=== PATIENT | male | born 1960 | race Caucasian/White ===

== ENCOUNTER 2017-02-05 20:51 | Inpatient (IN) | payer OTHER ==
[~2017-02-05] VITALS: Ht 167.6 cm; Wt 92.5 kg
[~2017-02-05 20:51] MED LIST: ASPI-781 PO; ATOR20TA38 PO; CLOP75TA27 PO; DOCU-144 PO; LISI-523 PO; METO-448 PO; NIT4 SL; VALS80TA2 PO; VIGA LEFT EYE
[2017-02-05] MEDS ORDERED: KETOROLAC 15 MG INJ IV STA (22:40)
[2017-02-05] MEDS ORDERED: CLOPIDOGREL 75 MG TAB PO ONE (23:00)
[2017-02-05] MEDS ORDERED: ASPIRIN 81 MG TAB PO ONE (23:00)
--- NOTE | 2017-02-05 23:02 | ERD ---
ER Documentation Chief Complaint Chief Complaint pressure like chest pain x 3 days worst this 4pm today HPI 56-year-old man with a strong history of CAD and previous [place] with PCI and stenting to left circumflex presents with chest pain intermittent 3 days. He denies cough, no shortness of breath, no fevers or chills, no vomiting or diarrhea. Patient denies headache or blurry vision. ROS All systems reviewed and are negative except as per history of present illness. Medications Home Meds Active Scripts Lisinopril* (Zestril*) 5 Mg Tablet, 5 MG PO DAILY for 30 Days, TAB Prov:CALEB MCLEOD 09/02/14 Nitroglycerin* (Nitrostat*) 25 Tab Subl, 0.4 MG SL .Q5M UP TO 3 DOSES Y for CHEST PAIN, #30 take every 5 minutes as needed for chest pain. Up to 3 doses max Prov:CALEB MCLEOD 09/02/14 Metoprolol Tartrate* (Lopressor*) 25 Mg Tab, 25 MG PO BID for 30 Days, TAB Prov:CALEB MCLEOD 09/02/14 Docusate Sodium* (Colace*) 100 Mg Cap, 100 MG PO BID for 30 Days Prov:CALEB MCLEOD 09/02/14 Clopidogrel Bisulfate (Clopidogrel) 75 Mg Tab, 75 MG PO DAILY for 30 Days Prov:CALEB MCLEOD 09/02/14 Atorvastatin Calcium* (Atorvastatin Calcium*) 20 Mg Tab, 80 MG PO DAILY@21 for 30 Days Prov:CALEB MCLEOD 09/02/14 Reported Medications Aspirin* (Aspirin* EC) 81 Mg Tablet.dr, 81 MG PO BID, TAB 02/06/17 Discontinued Scripts Moxifloxacin Hcl* (Vigamox*) 0.5% - 3 Ml Opht, 1 DROP LEFT EYE TID for 7 Days, EA Prov:JONI GARDNER NP 03/07/16 Valsartan* (Diovan*) 80 Mg Tab, 40 MG PO DAILY for 30 Days Prov:CALEB MCLEOD 09/02/14 Aspirin* (Ecotrin*) 325 Mg Tabec, 325 MG PO DAILY for 30 Days Prov:CALEB MCLEOD 09/02/14 Allergies Allergies: Coded Allergies: No Known Allergy (Unverified , 08/31/14) PMhx/Soc Hypertension, diabetes mellitus, CAD status post ST elevation [place] and left circumflex coronary artery stenting History of Surgery: No Anesthesia Reaction: No Hx Neurological Disorder: No Hx Respiratory Disorders: No Hx Cardiac Disorders: Yes (Percutaneous transluminal coronary angioplasty ) Hx Psychiatric Problems: No Hx Miscellaneous Medical Probl: No Hx Alcohol Use: No (QUIT 11 YRS AGO) Hx Substance Use: No Hx Tobacco Use: No (QUIT 11 YEARS AGO) FmHx Family History: No diabetes Physical Exam Vitals Vital Signs Date Time Temp Pulse Resp B/P Pulse Ox O2 Delivery O2 Flow Rate FiO2 02/05/17 23:15 63 18 142/98 99 Room Air 02/05/17 23:00 64 20 142/101 99 Room Air 02/05/17 22:50 65 21 141/101 99 Room Air 02/05/17 22:32 64 22 99 Room Air 02/05/17 22:00 73 17 132/89 100 Room Air 02/05/17 20:55 97.8 74 20 153/94 97 Physical Exam GENERAL: Well-developed, well-nourished, well-hydrated, in no apparent distress , looks nontoxic in appearance HEENT: Moist mucous membranes, pink conjunctiva, no cervical spine tenderness or step-off deformities, no goiter, no jaundice or icterus, extraocular movements intact without pain. No submandibular induration, and no pharyngeal erythema NEURO: Alert and oriented 3, cranial nerves II through XII intact bilaterally, pupils equal round reactive to light, no focal deficits or facial asymmetry, sensation intact distally Strength 5/5 in upper and lower extremities bilaterally CARDIAC: Regular rate and rhythm, no murmurs rubs or gallops LUNGS: Clear bilaterally no wheezing crackles or stridor ABDOMEN: Soft nontender, no guarding, no rigidity, no rebound, no psoas sign no obturator sign. Normoactive bowel sounds SKIN: Warm and dry to touch, no abrasions, contusions, or hematomas, no lacerations, no ecchymosis, no target lesions, and without ulcers EXTREMITIES: No clubbing cyanosis or edema, calves are bilaterally symmetrical, no Homans sign, no popliteal cord sign. Distal pulses equal and bilateral PSYCH: Normal affect without agitation or irritability Result Diagram: 02/05/17220702/05/172207 Results 24 hrs Laboratory Tests Test 02/05/17 22:08 White Blood Count 7.410^3/ul Red Blood Count 5.0210^6/ul Hemoglobin 15.3g/dl Hematocrit 44.4% Mean Corpuscular Volume 88.4fl Mean Corpuscular Hemoglobin 30.5pg Mean Corpuscular Hemoglobin Concent 34.5g/dl Red Cell Distribution Width 12.4% Platelet Count 16119^3/UL Mean Platelet Volume 11.6fl Neutrophils % 62.0% Lymphocytes % 26.1% Monocytes % 10.2% Eosinophils % 0.9% Basophils % 0.4% Nucleated Red Blood Cells % 0.0/100WBC Neutrophils # 4.610^3/ul Lymphocytes # 1.910^3/ul Monocytes # 0.810^3/ul Eosinophils # 0.110^3/ul Basophils # 0.010^3/ul Nucleated Red Blood Cells # 0.010^3/ul Sodium Level 143mmol/L Potassium Level 3.8mmol/L Chloride Level 106mmol/L Carbon Dioxide Level 26mmol/L Anion Gap 15 Blood Urea Nitrogen 10mg/dl Creatinine 0.77mg/dl Glucose Level 186mg/dl Calcium Level 9.2mg/dl Total Bilirubin 0.2mg/dl Direct Bilirubin 0.00mg/dl Indirect Bilirubin 0.2mg/dl Aspartate Amino Transf (AST/SGOT) 55IU/L Alanine Aminotransferase (ALT/SGPT) 80IU/L Alkaline Phosphatase 132IU/L Troponin I < 0.012ng/ml Total Protein 7.8g/dl Albumin 3.9g/dl Globulin 3.90g/dl Albumin/Globulin Ratio 1.00 Lipase 182U/L Current Medications Medications (Trade) Dose Ordered Sig/Dewey Route PRN Reason Start Time Stop Time Status Last Admin Dose Admin Ketorolac Tromethamine (Toradol) 15 mg ONCE STAT IV 02/05/17 22:40 02/05/17 22:41 DC 02/05/17 22:47 Aspirin (Aspirin) 324 mg ONCE ONCE PO 02/05/17 23:00 02/05/17 23:10 DC 02/05/17 23:18 Clopidogrel Bisulfate (plaVIX) 300 mg ONCE ONCE PO 02/05/17 23:00 02/05/17 23:10 DC 02/05/17 23:18 Clopidogrel Bisulfate (plaVIX) 75 mg [facility] ONCE .ROUTE 02/05/17 23:11 02/05/17 23:12 DC Procedures/MDM IV line was established patient was placed on teletypesetter monitor rhythm strip revealed a sinus rhythm at about 80 bpm with upright P and T waves. Patient was afebrile EKG performed, read by me: 76 bpm, normal sinus rhythm, normal axis, no acute ST segment changes, narrow QRS complex, with good R-wave progression in precordial leads. One AP view of the chest performed, read by me reveals no acute infiltrates, normal mediastinum, sharp costophrenic and cardiac borders, no air under the diaphragm. Otherwise unremarkable chest x-ray. I administered Toradol 15 mg IV 1, aspirin 324 mg p.o. and clopidogrel 300 mg p.o. for cardioprotective measures. CBC and electrolytes are normal, liver function tests are normal, troponin was negative. Patient will be admitted to telemetry setting for continued medical management and cardiology consultation. Departure Diagnosis: Primary Impression: Chest pain Chest pain type: unspecified Qualified Code: R07.9 - Chest pain, unspecified type Additional Impression: Hypertension Hypertension type: essential hypertension Qualified Code: I10 - Essential hypertension Condition: BRUNO Clifford MD Feb 05, 2017 23:02
[2017-02-05] MEDS ORDERED: CLOPIDOGREL 75 MG TAB ONE (23:11)
[2017-02-05 23:18] LABS: BASOPHILS % 0.4 % (0.0-2.0); EOSINOPHILS # 0.1 10^3/ul (0.0-0.5); EOSINOPHILS % 0.9 % (0.0-7.0); HEMATOCRIT 44.4 % (42.0-52.0); HEMOGLOBIN 15.3 g/dl (14.0-18.0); LYMPHOCYTES # 1.9 10^3/ul (0.8-2.9); LYMPHOCYTES % 26.1 % (15.0-51.0); MEAN CORPUSCULAR HEMOGLOBIN 30.5 pg (29.0-33.0); MEAN CORPUSCULAR HGB CONC 34.5 g/dl (32.0-37.0); MEAN CORPUSCULAR VOLUME 88.4 fl (82.0-101.0); MEAN PLATELET VOLUME 11.6 fl (7.4-10.4); MONOCYTE # 0.8 10^3/ul (0.3-0.9); MONOCYTES % 10.2 % (0.0-11.0); NEUTROPHIL # 4.6 10^3/ul (1.6-7.5); PLATELET COUNT 171 10^3/UL (140-415); RED BLOOD COUNT 5.02 10^6/ul (4.70-6.10); RED CELL DISTRIBUTION WIDTH 12.4 % (11.5-14.5); WHITE BLOOD COUNT 7.4 10^3/ul (4.8-10.8)
[2017-02-05 23:25] LABS: ALANINE AMINOTRANSFERASE 80 IU/L (13-69); ALBUMIN 3.9 g/dl (3.3-4.9); ALKALINE PHOSPHATASE 132 IU/L (42-121); ANION GAP 15 (8-16); ASPARTATE AMINO TRANSFERASE 55 IU/L (15-46); BILIRUBIN,INDIRECT 0.2 mg/dl (0-1.1); BILIRUBIN,TOTAL 0.2 mg/dl (0.2-1.3); BLOOD UREA NITROGEN 10 mg/dl (7-20); CALCIUM 9.2 mg/dl (8.4-10.2); CARBON DIOXIDE 26 mmol/L (21-31); CHLORIDE 106 mmol/L (97-110); CREATININE 0.77 mg/dl (0.61-1.24); GLUCOSE 186 mg/dl (70-220); POTASSIUM 3.8 mmol/L (3.5-5.1); SODIUM 143 mmol/L (135-144); TOTAL PROTEIN 7.8 g/dl (6.1-8.1)
--- NOTE | 2017-02-05 23:28 | RADRPT ---
PROCEDURE: Chest. CLINICAL INDICATION: Chest pain. TECHNIQUE: Single frontal view of the chest was obtained. COMPARISON: 08/31/2014. FINDINGS: The cardiac silhouette is enlarged. The aortic arch is mildly calcified. There is no focal consoli dation, vascular congestion or pleural effusion. There is no pneumothorax. IMPRESSION: Mild cardiomegaly and aortic atherosclerosis. .Alex Ferrari MD, Date Time Electronically viewed and signed by .Alex Ferrari MD, MD on 02/05/2017 23:28 .T/
[2017-02-05 23:39] LABS: TROPONIN-I < 0.012 ng/ml (0.00-0.12)
[2017-02-06] VITALS (11 sets, daily range): BP systolic 104–142; BP diastolic 57–93; PULSE 62–71; RESP 19–20; TEMP 97.9; Ht 167.6 cm; Wt 92.5 kg
[2017-02-06] MEDS ORDERED: ALBUTEROL/IPRATROPIUM (NEB) 3 ML AMP HHN PRN
[2017-02-06] MEDS ORDERED: ACETAMINOPHEN 325 MG TAB PO PRN
[2017-02-06] MEDS ORDERED: NACL 0.9% 3 ML SYG IV SCH
[2017-02-06] MEDS ORDERED: ONDANSETRON 4 MG INJ IV PRN
[2017-02-06] MEDS ORDERED: morphine 2 MG INJ IV PRN
[2017-02-06] MEDS ORDERED: ASPI-664 PO (01:07)
[2017-02-06 01:08] LABS: CREATINE KINASE 88 IU/L (23-200)
[2017-02-06 01:25] LABS: CK-MB 1.01 ng/ml (0.0-2.4); TROPONIN-I < 0.012 ng/ml (0.00-0.12)
--- NOTE | 2017-02-06 06:14 | HP ---
Date/Time of Note Date/Time of Note DATE: 02/06/17 TIME: 06:10 Assessment/Plan VTE Prophylaxis VTE Prophylaxis Intervention: heparin Lines/Catheters IV Catheter Type (from Nrs): Saline Lock Assessment/Plan Assessment/Plan ASSESSMENT 56-year-old male with a history of hypertension, prediabetes, CAD with stent of the left circumflex in 2014 here with chest pain. Need to rule out ACS. PLAN -Telemetry monitoring -Supplemental oxygen, continue outpatient medication including dual antiplatelet , beta-rohini, statin, ACEI. As needed nitro morphine -2D echo and cardiology consult -Check A1c and fasting lipid in a.m. HPI/ROS Admit Date/Time Admit Date/Time Feb 05, 2017 at 23:44 Hx of Present Illness This is a 56-year-old male with a history of hypertension, prediabetes, CAD status post PCI with stents of the left circumflex in 2014 who presented to ER complaining of chest pain x 3 days. It is left sided with no radiation. Denied shortness of breath, nausea/vomiting, diaphoresis. Currently he is feeling well and is CP free. He said he has not been taking any medications for over 7 months. Said he did not know he has to. Initial EKG with no ST-T wave abnormalities, first troponin negative, chest x-ray was mild cardiomegaly and aortic atherosclerosis. PMH/Family/Social Social History Smoking Status: Former smoker Exam/Review of Systems Vital Signs Vitals Vital Signs Date Time Temp Pulse Resp B/P Pulse Ox O2 Delivery O2 Flow Rate FiO2 02/06/17 04:25 68 02/06/17 04:19 98.5 19 104/68 97 02/06/17 00:13 Room Air Intake and Output 02/05/17 02/05/17 02/06/17 14:59 22:59 06:59 Intake Total 400 ml Balance 400 ml Exam Constitutional: alert, oriented, well developed Head: atraumatic, normocephalic Eyes: EOMI, PERRL Respiratory: clear to auscultation, normal air movement Cardiovascular: nl pulses, regular rate and rhythm Gastrointestinal: non-tender, soft Extremities: normal pulses Labs Result Diagram: 02/05/17220702/05/172207 Medications Medications Current Medications Ondansetron HCl (Zofran Inj) 4 mg Q6H PRN IV NAUSEA AND/OR VOMITING; Start at 00:00 Aspirin (Aspirin) 81 mg DAILY PO ; Start 02/06/17 at 09:00 Acetaminophen (Tylenol Tab) 650 mg Q6H PRN PO PAIN LEVEL 1-3 OR FEVER; Start 02/06/17 at 00:00 Morphine Sulfate (morphine) 2 mg Q4H PRN IV PAIN LEVEL 7-10; Start 02/06/17 at 00:00 Famotidine (Pepcid) 20 mg Q12 PO ; Start 02/06/17 at 09:00 Enoxaparin Sodium (Lovenox) 40 mg DAILY SC ; Start 02/06/17 at 09:00 Atorvastatin Calcium (Lipitor) 80 mg DAILY@21 PO ; Start 02/06/17 at 21:00 Clopidogrel Bisulfate (plaVIX) 75 mg DAILY PO ; Start 02/06/17 at 09:00 Docusate Sodium (Colace) 100 mg BID PO ; Start 02/06/17 at 09:00 Lisinopril (Zestril) 5 mg DAILY PO ; Start 02/06/17 at 09:00 Metoprolol Tartrate (Lopressor) 25 mg BID PO ; Start 02/06/17 at 09:00 FERNANDA FERNANDEZ MD Feb 06, 2017 06:14
[2017-02-06 07:22] LABS: BASOPHILS % 0.5 % (0.0-2.0); EOSINOPHILS # 0.1 10^3/ul (0.0-0.5); EOSINOPHILS % 1.6 % (0.0-7.0); HEMATOCRIT 41.9 % (42.0-52.0); HEMOGLOBIN 14.6 g/dl (14.0-18.0); LYMPHOCYTES # 1.2 10^3/ul (0.8-2.9); LYMPHOCYTES % 18.5 % (15.0-51.0); MEAN CORPUSCULAR HEMOGLOBIN 30.7 pg (29.0-33.0); MEAN CORPUSCULAR HGB CONC 34.8 g/dl (32.0-37.0); MEAN PLATELET VOLUME 11.4 fl (7.4-10.4); MONOCYTE # 0.7 10^3/ul (0.3-0.9); MONOCYTES % 11.5 % (0.0-11.0); NEUTROPHIL # 4.3 10^3/ul (1.6-7.5); NEUTROPHILS % 67.4 % (39.0-77.0); PLATELET COUNT 145 10^3/UL (140-415); RED BLOOD COUNT 4.76 10^6/ul (4.70-6.10); RED CELL DISTRIBUTION WIDTH 12.2 % (11.5-14.5); WHITE BLOOD COUNT 6.4 10^3/ul (4.8-10.8)
[2017-02-06 07:38] LABS: ALBUMIN 3.4 g/dl (3.3-4.9); ALBUMIN/GLOBULIN RATIO 0.91; BILIRUBIN,INDIRECT 0.4 mg/dl (0-1.1); BILIRUBIN,TOTAL 0.4 mg/dl (0.2-1.3); CALCIUM 9.1 mg/dl (8.4-10.2); CHOL/HDL RATIO 4.2 RATIO; CREATINE KINASE 81 IU/L (23-200); CREATININE 0.95 mg/dl (0.61-1.24); MAGNESIUM 1.9 mg/dl (1.7-2.5); POTASSIUM 3.6 mmol/L (3.5-5.1); TOTAL PROTEIN 7.1 g/dl (6.1-8.1)
[2017-02-06 07:52] LABS: CK-MB 0.95 ng/ml (0.0-2.4); TROPONIN-I < 0.012 ng/ml (0.00-0.12)
[2017-02-06 08:08] LABS: THYROID STIMULATING HORMONE 2.97 MIU/L (0.465-4.680)
[2017-02-06] MEDS ORDERED: LISINOPRIL 5 MG TAB PO SCH (09:00)
[2017-02-06] MEDS ORDERED: ASPIRIN 81 MG TAB PO SCH (09:00)
[2017-02-06] MEDS ORDERED: DOCUSATE SODIUM 100 MG CAP PO SCH (09:00)
[2017-02-06] MEDS ORDERED: ENOXAPARIN 40 MG/0.4 ML SYG SC SCH (09:00)
[2017-02-06] MEDS ORDERED: CLOPIDOGREL 75 MG TAB PO SCH (09:00)
[2017-02-06] MEDS ORDERED: METOPROLOL 25 MG TAB PO SCH (09:00)
[2017-02-06] MEDS ORDERED: FAMOTIDINE 20 MG TAB PO SCH (09:00)
[2017-02-06] MEDS ORDERED: ATOR10TA65 PO (10:36)
[2017-02-06] MEDS ORDERED: ASPI81TA3 PO (10:36)
[2017-02-06] MEDS ORDERED: METO-448 PO (10:36)
--- NOTE | 2017-02-06 15:10 | RADRPT ---
Echocardiogram Report Patient Name: RASHEL RILEY Gender: Male Date: 1960 Study Date: 06-Feb-2017 Transmission Rebuilder: Thanh Nair [facility] Location: 5538-A Ref. Physician: FERNANDA FERNANDEZ Quality: Adequate Procedures: Transthoracic echocardiogram with complete 2D, M-Mode, and doppler examination. Indications: Chest Pain. 2D/M Mode Doppler Measurement Value Normal Ranges Measurement Value Normal Ranges LVIDd 2D 5.0 3.5 - 5.6 cm AV Peak Reza 1.1 m/sec LVIDs 2D 3.5 2.1 - 4.1 cm AV Peak PG 4.8 mmHg LVPWd 2D 1.1 0.6 - 1.1 cm LVOT Peak Reza 0.8 m/sec IVSd 2D 1.1 0.6 - 1.1 cm LVOT Peak PG 2.7 mmHg AoR Diam 2D 3.3 2.0 - 3.7 cm MV E Peak Reza 0.7 m/sec EDV 2D 117.1 cm3 MV A Peak Reza 0.5 m/sec ESV 2D 41.5 cm3 MV E/A 1.4 LA Dimen 2D 3.9 2.3 - 4.0 cm MV Decel Time 111 msec MV Decel [place] 7 MV E/A 1.4 TR Peak Reza 2.3 m/sec TR Peak PG 20.3 mmHg RVSP 30.0 mmHg Findings Left Ventricle: Normal left ventricular systolic function. Normal left ventricular cavity size. Left ventricular wall thickness upper limits of normal. Ejection fraction is visually estimated at 55 %. Tissue Doppler/Mitral Doppler indices are consistent with pseudonormalization with mildly elevated left atrial pressure (Stage II diastolic dysfunction). Right Ventricle: Normal right ventricular size. Normal right ventricular systolic function. Left Atrium: The left atrium is normal in size. Right Atrium: The right atrium is normal in size. Mitral Valve: Normal appearance and function of the mitral valve with trace physiologic regurgitation. Aortic Valve: Normal appearance of the aortic valve. No significant aortic stenosis or insufficiency. Tricuspid Valve: Normal appearance of the tricuspid valve. Estimated peak PA systolic pressure 30 mmHg. There is mild tricuspid regurgitation. Pulmonic Valve: Pulmonic valve not well visualized. There is trace pulmonic regurgitation. Pericardium: Normal pericardium with no significant pericardial effusion. Aorta: Normal aortic root. IVC: Normal size and normal respiratory collapse consistent with normal right atrial pressure. Conclusions 1.Normal left ventricular systolic function. Normal left ventricular cavity size. Left ventricular wall thickness upper limits of normal. Ejection fraction is visually estimated at 55 %. Tissue Doppler/Mitral Doppler indices are consistent with pseudonormalization with mildly elevated left atrial pressure (Stage II diastolic dysfunction). 2.Normal appearance and function of the mitral valve with trace physiologic regurgitation. 3.Normal appearance of the aortic valve. No significant aortic stenosis or insufficiency. 4.Normal appearance of the tricuspid valve. Estimated peak PA systolic pressure 30 mmHg. There is mild tricuspid regurgitation. Electronically Signed By: Travis Rogers 06-Feb-2017 15:09:40 -0800 Patient Name: RASHEL RILEY Study Date: 06-Feb-2017 [id number]
--- NOTE | 2017-02-06 16:01 | DS ---
Date/Time of Note Date/Time of Note DATE: 02/06/17 TIME: 15:58 Discharge Summary Admission/Discharge Info Admit Date/Time Feb 05, 2017 at 23:44 Discharge Date/Time 02/06/17 Discharge Diagnosis * Chest pain * Hypertensive Heart disease Patient Condition: Stable Hospital Course This is a 56-year-old male who was admitted with recurrent chest pain over the last 5 days after he has had a history of a cardiac heart attack about a year and 1/2-2 years ago. The patient states that he has taken no medications since his discharge because he had no primary care doctor to refill his meds, and has has not had any medication for 9 months to a year. He was admitted for a cardiac workup and has ruled out with 3 troponins, he also had a relatively unremarkable 2D echocardiogram. He was also seen in consult by cardiology, and has been cleared for outpatient discharge and follow-up. He was given resources to help him pick a primary care doctor and was encouraged to ensure that he stay compliant with medications. The patient verbalized understanding and is stable for discharge at this time. Home Meds Active Scripts Atorvastatin Calcium (Atorvastatin Calcium) 10 Mg Tablet, 10 MG PO QHS, #30 TAB 3 Refills Prov:SUZE MUHAMMADIAIN Marie. 02/06/17 Aspirin (Aspirin) 81 Mg Chew, 81 MG PO DAILY for 30 Days, TAB 3 Refills Prov:JBJOSIAS. 02/06/17 Metoprolol Tartrate* (Lopressor*) 25 Mg Tab, 25 MG PO BID for 30 Days, TAB 3 Refills Prov:JOSIAS MUHAMMAD 02/06/17 Lisinopril* (Zestril*) 5 Mg Tablet, 5 MG PO DAILY for 30 Days, TAB Prov:CALEB MCLEOD 09/02/14 Nitroglycerin* (Nitrostat*) 25 Tab Subl, 0.4 MG SL .Q5M UP TO 3 DOSES Y for CHEST PAIN, #30 take every 5 minutes as needed for chest pain. Up to 3 doses max Prov:CALEB MCLEOD 09/02/14 Docusate Sodium* (Colace*) 100 Mg Cap, 100 MG PO BID for 30 Days Prov:CALEB MCLEOD 09/02/14 Clopidogrel Bisulfate (Clopidogrel) 75 Mg Tab, 75 MG PO DAILY for 30 Days Prov:CALEB MCLEOD 09/02/14 Atorvastatin Calcium* (Atorvastatin Calcium*) 20 Mg Tab, 80 MG PO DAILY@21 for 30 Days Prov:CALEB MCLEOD 09/02/14 Reported Medications Aspirin* (Aspirin* EC) 81 Mg Tablet.dr 81 MG PO BID, TAB 02/06/17 Discontinued Scripts Moxifloxacin Hcl* (Vigamox*) 0.5% - 3 Ml Opht, 1 DROP LEFT EYE TID for 7 Days, EA Prov:JONI GARDNER NP 03/07/16 Valsartan* (Diovan*) 80 Mg Tab, 40 MG PO DAILY for 30 Days Prov:CALEB MCLEOD 09/02/14 Aspirin* (Ecotrin*) 325 Mg Tabec, 325 MG PO DAILY for 30 Days Prov:CALEB MCLEOD 09/02/14 Follow-up Plan Followup with your primary doctor within the next 1-2 weeks. You have been given resources that may help you pick a new primary physician You may call Dr Cem Escalante's office. he's accepting new patients Name, Degree: Cem Escalante MD Specialty: Internal Medicine Comments: Office Address: [address] [place] [address] Office Office You may also call your insurance company to assign one to you. Review your medication list with your nurse before leaving and if you need new prescriptions please let your nurse know. I may have made changes to your home medications or given you new prescriptions, please let your primary doctor know as well. Stay compliant with your medications and report any side effects to your PCP or pharmacist. Return to the ER if you have any concerns and cannot reach your doctors or call your insurance company, they usually have a nurse that can help you. Primary Care Provider Care Physician No Primary Time spent on discharge: > 30 minutes Pending Labs Laboratory Tests Test 02/05/17 22:08 02/06/17 00:35 02/06/17 06:22 White Blood Count 7.410^3/ul (4.8-10.8) 6.410^3/ul (4.8-10.8) Red Blood Count 5.0210^6/ul (4.70-6.10) 4.7610^6/ul (4.70-6.10) Hemoglobin 15.3g/dl (14.0-18.0) 14.6g/dl (14.0-18.0) Hematocrit 44.4% (42.0-52.0) 41.9% (42.0-52.0) Mean Corpuscular Volume 88.4fl (82.0-101.0) 88.0fl (82.0-101.0) Mean Corpuscular Hemoglobin 30.5pg (29.0-33.0) 30.7pg (29.0-33.0) Mean Corpuscular Hemoglobin Concent 34.5g/dl (32.0-37.0) 34.8g/dl (32.0-37.0) Red Cell Distribution Width 12.4% (11.5-14.5) 12.2% (11.5-14.5) Platelet Count 08235^3/UL (140-415) 25272^3/UL (140-415) Mean Platelet Volume 11.6fl (7.4-10.4) 11.4fl (7.4-10.4) Neutrophils % 62.0% (39.0-77.0) 67.4% (39.0-77.0) Lymphocytes % 26.1% (15.0-51.0) 18.5% (15.0-51.0) Monocytes % 10.2% (0.0-11.0) 11.5% (0.0-11.0) Eosinophils % 0.9% (0.0-7.0) 1.6% (0.0-7.0) Basophils % 0.4% (0.0-2.0) 0.5% (0.0-2.0) Nucleated Red Blood Cells % 0.0/100WBC (0.0-0.0) 0.0/100WBC (0.0-0.0) Neutrophils # 4.610^3/ul (1.6-7.5) 4.310^3/ul (1.6-7.5) Lymphocytes # 1.910^3/ul (0.8-2.9) 1.210^3/ul (0.8-2.9) Monocytes # 0.810^3/ul (0.3-0.9) 0.710^3/ul (0.3-0.9) Eosinophils # 0.110^3/ul (0.0-0.5) 0.110^3/ul (0.0-0.5) Basophils # 0.010^3/ul (0.0-0.1) 0.010^3/ul (0.0-0.1) Nucleated Red Blood Cells # 0.010^3/ul (0.0-0.0) 0.010^3/ul (0.0-0.0) Sodium Level 143mmol/L (135-144) 144mmol/L (135-144) Potassium Level 3.8mmol/L (3.5-5.1) 3.6mmol/L (3.5-5.1) Chloride Level 106mmol/L (97-110) 106mmol/L (97-110) Carbon Dioxide Level 26mmol/L (21-31) 30mmol/L (21-31) Anion Gap 15 (8-16) 12 (8-16) Blood Urea Nitrogen 10mg/dl (7-20) 12mg/dl (7-20) Creatinine 0.77mg/dl (0.61-1.24) 0.95mg/dl (0.61-1.24) Glucose Level 186mg/dl (70-220) 140mg/dl (70-220) Calcium Level 9.2mg/dl (8.4-10.2) 9.1mg/dl (8.4-10.2) Total Bilirubin 0.2mg/dl (0.2-1.3) 0.4mg/dl (0.2-1.3) Direct Bilirubin 0.00mg/dl (0.00-0.20) 0.00mg/dl (0.00-0.20) Indirect Bilirubin 0.2mg/dl (0-1.1) 0.4mg/dl (0-1.1) Aspartate Amino Transf (AST/SGOT) 55IU/L (15-46) 47IU/L (15-46) Alanine Aminotransferase (ALT/SGPT) 80IU/L (13-69) 72IU/L (13-69) Alkaline Phosphatase 132IU/L (42-121) 112IU/L (42-121) Troponin I < 0.012ng/ml (0.00-0.12) < 0.012ng/ml (0.00-0.12) < 0.012ng/ml (0.00-0.12) Total Protein 7.8g/dl (6.1-8.1) 7.1g/dl (6.1-8.1) Albumin 3.9g/dl (3.3-4.9) 3.4g/dl (3.3-4.9) Globulin 3.90g/dl (1.3-3.2) 3.70g/dl (1.3-3.2) Albumin/Globulin Ratio 1.00 0.91 Lipase 182U/L (23-300) Creatine Kinase 88IU/L (23-200) 81IU/L (23-200) Creatine Kinase Index 1.1 1.2 Creatinine Kinase MB (Mass) 1.01ng/ml (0.0-2.4) 0.95ng/ml (0.0-2.4) Hemoglobin A1c 7.0% (0-5.9) Magnesium Level 1.9mg/dl (1.7-2.5) Triglycerides Level 159mg/dl (0-149) Cholesterol Level 153mg/dl (100-200) LDL Cholesterol, Calculated 85mg/dl HDL Cholesterol 36mg/dl (28-71) Cholesterol/HDL Ratio 4.2RATIO Thyroid Stimulating Hormone (TSH) 2.970MIU/L (0.465-4.680) JOSIAS MUHAMMAD Feb 06, 2017 16:01
--- NOTE | 2017-02-06 16:02 | PDOCDIS ---
Discharge Instructions DIAGNOSIS Discharge Diagnosis * Chest pain * Hypertensive Heart disease CONDITION Patient Condition: Stable HOME CARE INSTRUCTIONS: Special Diet: cardiac, low carb ACTIVITY: Activity Restrictions: Slowly Increase Activity Rest between Activity FOLLOW UP/APPOINTMENTS Follow-up Plan Followup with your primary doctor within the next 1-2 weeks. You have been given resources that may help you pick a new primary physician You may call Dr Cem Escalante's office. he's accepting new patients Name, Degree: Cem Escalante MD Specialty: Internal Medicine Comments: Office Address: [address] [place] [address] Office Office You may also call your insurance company to assign one to you. Review your medication list with your nurse before leaving and if you need new prescriptions please let your nurse know. I may have made changes to your home medications or given you new prescriptions, please let your primary doctor know as well. Stay compliant with your medications and report any side effects to your PCP or pharmacist. Return to the ER if you have any concerns and cannot reach your doctors or call your insurance company, they usually have a nurse that can help you. JOSIAS MUHAMMAD Feb 06, 2017 16:02
--- NOTE | 2017-02-06 16:03 | CONS ---
Date/Time of Note Date/Time of Note DATE: 02/06/17 TIME: 15:54 Assessment/Plan Assessment/Plan Chief Complaint/Hosp Course 1. Atypical chest pain: has resolved with negative trop. 2. CAD 3. HX WA 4. HX PCI LCX 5. dyslipidemia 6. exsmoker Commendations: Patient has been started on optimal medical therapy including aspirin beta- rohini and statin. We will be able to walk around with no chest pain or pressure. his old angiogram film was personally reviewed. LAD and RCA were normal and good angiographic results was seen after PCI LCX. At this point I recommend aggressive medical therapy. If patient has recurrent chest pain after being compliant with the medication further tests including the stress testing would be indicated otherwise recommend medical therapy only. Patient has been given 1 information to contact for follow-up appointment if he desires to have a regular follow-up. Thank you for his referral CORINNA KAPOOR MD [facility] Problems: Consultation Date/Type/Reason Admit Date/Time Feb 05, 2017 at 23:44 Date of Consultation: Feb 06, 2017 Type of Consultation: cardiology Reason for Consultation chest pain Referring Provider: JOSIAS MUHAMMAD of Present Illness Cardiology consultation CC: Chest discomfort HPI: This is a pleasant 56-year-old gentleman with history of coronary artery disease, status post ST elevation myocardial infarction in 2014 with PCI of left circumflex artery at that time who presented to the emergency room with above complaints. Patient has been out of his medication for a few months already. He has not been followed by any doctor regularly. He said that he felt hot in his left side of his chest that was lasting for hours. It has resolved now he wants to go home now. He has been hypertensive when he came to emergency room which has been corrected with addition of beta-blockers. He denies any chest pain or pressure to me now. He denies any exertional chest pain to me. Said he is normally able to walk and exercise quite a bit with no chest pain or pressure. PMH: CAD S/P STEMI 2014, PCI LCX 2014 HTN Dyslipidemia ex-smoker PSH: 08/31/2014: [facility] arabella PCI LCX 3X28 promus MAO: CORONARY ANGIOGRAPHY, LEFT: Normal left main, normal course of LAD and left circumflex, adequate flow. There is complete occlusion in the mid portion of the left circumflex that obviously has thrombotic material in it, AZALIA 0 flow. CORONARY ANGIOGRAPHY, RIGHT: Normal course of RCA, adequate flow, no significant coronary sclerosis. Family history: His father had some sort of heart surgery probably done in his 80s allergy NKDA Meds at home none Social history: Patient quit smoking that he had a heart attack in 2014. ROS: as above only he denies all others. Social History Smoking Status: Former smoker Exam/Review of Systems Vital Signs Vitals Vital Signs Date Time Temp Pulse Resp B/P Pulse Ox O2 Delivery O2 Flow Rate FiO2 02/06/17 12:07 65 02/06/17 11:52 98.6 20 135/57 98 02/06/17 00:13 Room Air Intake and Output 02/05/17 02/05/17 02/06/17 14:59 22:59 06:59 Intake Total 400 ml Balance 400 ml Exam General: no acute distress HEENT: NC/AT. pupils are equal. round. NECK: NO JVD. no stridor. CV: RRR. systolic murmur; no gallop or rubs. PULM: no wheezing or rhonchi. GI: SOFT, NT, ND, no rebound or guarding Extremity: trace B/L LE edema. no clubbing. neuro: awake and alert, OX3. Psych: calm and pleasant rectal: deferred : normal ECG NSR inf infarct ECHO reviewed EF 55% Results Result Diagram: 02/06/1762102/06/17621 Results 24 hrs Laboratory Tests Test 02/05/17 22:08 02/06/17 00:35 02/06/17 06:22 White Blood Count 7.4 6.4 Red Blood Count 5.02 4.76 Hemoglobin 15.3 14.6 Hematocrit 44.4 41.9 L Mean Corpuscular Volume 88.4 88.0 Mean Corpuscular Hemoglobin 30.5 30.7 Mean Corpuscular Hemoglobin Concent 34.5 34.8 Red Cell Distribution Width 12.4 12.2 Platelet Count 171 145 Mean Platelet Volume 11.6 #H 11.4 H Neutrophils % 62.0 67.4 Lymphocytes % 26.1 18.5 Monocytes % 10.2 11.5 H Eosinophils % 0.9 1.6 Basophils % 0.4 0.5 Nucleated Red Blood Cells % 0.0 0.0 Neutrophils # 4.6 4.3 Lymphocytes # 1.9 1.2 Monocytes # 0.8 0.7 Eosinophils # 0.1 0.1 Basophils # 0.0 0.0 Nucleated Red Blood Cells # 0.0 0.0 Sodium Level 143 144 Potassium Level 3.8 3.6 Chloride Level 106 106 Carbon Dioxide Level 26 30 Anion Gap 15 12 Blood Urea Nitrogen 10 12 Creatinine 0.77 0.95 Glucose Level 186 140 # Calcium Level 9.2 9.1 Total Bilirubin 0.2 0.4 Direct Bilirubin 0.00 0.00 Indirect Bilirubin 0.2 0.4 Aspartate Amino Transf (AST/SGOT) 55 H 47 H Alanine Aminotransferase (ALT/SGPT) 80 H 72 H Alkaline Phosphatase 132 H 112 Troponin I < 0.012 < 0.012 < 0.012 Total Protein 7.8 7.1 Albumin 3.9 3.4 Globulin 3.90 H 3.70 H Albumin/Globulin Ratio 1.00 0.91 Lipase 182 Creatine Kinase 88 81 Creatine Kinase Index 1.1 1.2 Creatinine Kinase MB (Mass) 1.01 0.95 Hemoglobin A1c 7.0 H Magnesium Level 1.9 Triglycerides Level 159 H Cholesterol Level 153 LDL Cholesterol, Calculated 85 HDL Cholesterol 36 Cholesterol/HDL Ratio 4.2 Thyroid Stimulating Hormone (TSH) 2.970 Medications Medications Current Medications Ondansetron HCl (Zofran Inj) 4 mg Q6H PRN IV NAUSEA AND/OR VOMITING; Start at 00:00 Aspirin (Aspirin) 81 mg DAILY PO Last administered on 02/06/17 08:06; Admin Dose 81 MG; Start 02/06/17 at 09:00 Acetaminophen (Tylenol Tab) 650 mg Q6H PRN PO PAIN LEVEL 1-3 OR FEVER; Start 02/06/17 at 00:00 Morphine Sulfate (morphine) 2 mg Q4H PRN IV PAIN LEVEL 7-10; Start 02/06/17 at 00:00 Famotidine (Pepcid) 20 mg Q12 PO Last administered on 02/06/17 08:06; Admin Dose 20 MG; Start 02/06/17 at 09:00 Enoxaparin Sodium (Lovenox) 40 mg DAILY SC Last administered on 02/06/17 08: 09; Admin Dose 40 MG; Start 02/06/17 at 09:00 Atorvastatin Calcium (Lipitor) 80 mg DAILY@21 PO ; Start 02/06/17 at 21:00 Clopidogrel Bisulfate (plaVIX) 75 mg DAILY PO Last administered on 02/06/17 08:06; Admin Dose 75 MG; Start 02/06/17 at 09:00 Docusate Sodium (Colace) 100 mg BID PO Last administered on 02/06/17 08:05; Admin Dose 100 MG; Start 02/06/17 at 09:00 Lisinopril (Zestril) 5 mg DAILY PO Last administered on 02/06/17 08:06; Admin Dose 5 MG; Start 02/06/17 at 09:00 Metoprolol Tartrate (Lopressor) 25 mg BID PO Last administered on 02/06/17 08 :06; Admin Dose 25 MG; Start 02/06/17 at 09:00 CORINNA KAPOOR MD Feb 06, 2017 16:03
[2017-02-06] MEDS ORDERED: ATORVASTATIN 80 MG TAB PO SCH (21:00)
== END 2017-02-06 16:59 | disposition home or self-care (01) | DRG 313 ==
LOC: E/R 20:51 → MS4 23:44
PROVIDERS: ADMIT Internal Medicine; ATTEND Internal Medicine
DX: R07.9 Chest pain, unspecified (principal); I25.2 Old myocardial infarction; I11.9 Hypertensive heart disease without heart failure; I25.10 Atherosclerotic heart disease of native coronary artery without angina pectoris; E78.5 Hyperlipidemia, unspecified; R73.03 Prediabetes; Z95.5 Presence of coronary angioplasty implant and graft; Z87.891 Personal history of nicotine dependence; Z91.14 Patient's other noncompliance with medication regimen
CPT/HCPCS: 36415; 71010; 80053; 80061; 82550; 82553; 83036; 83690; 83735; 84443; 84484; 85025; 93005; 93306; 96374; J1650; J1885

== ENCOUNTER 2018-02-06 22:54 | Emergency (ER) | END 2018-02-07 01:55 | disposition home or self-care (01) ==